=== PATIENT | male | born 1990 | race Caucasian/White ===

== ENCOUNTER 2019-07-04 20:48 | Emergency (ER) | payer OTHER ==
[~2019-07-04] VITALS: Ht 190.5 cm; Wt 68.2 kg
[~2019-07-04 20:48] MED LIST: LAMISIL250 M1; MULTI VITAMINS1 TAB PO; NO HOME MEDICATIONS; PREDNISONE20 MG PO
[2019-07-04 20:53] VITALS: BP 154/99; TEMP 97.4
[2019-07-04] MEDS ORDERED: NORCO 325 MG-51 TAB PO (22:29)
[2019-07-04 22:41] VITALS: PULSE 86
== END 2019-07-04 22:41 | disposition home or self-care (01) ==
LOC: COL.ER 20:48
DX: S43.005A Unspecified dislocation of left shoulder joint, initial encounter (principal); W01.0XXA Fall on same level from slipping, tripping and stumbling without subsequent striking against object, initial encounter; Y93.64 Activity, baseball; Y92.830 Public park as the place of occurrence of the external cause
CPT/HCPCS: J2060; J2405; J3010

== ENCOUNTER 2024-07-27 12:48 | Outpatient (CLI) | payer OTHER ==
[~2024-07-27] VITALS: Ht 190.5 cm; Wt 68.0 kg
[~2024-07-27 12:48] MED LIST changes: +NORCO 325 MG-51 TAB PO
[2024-07-27] MEDS ORDERED: NS 1,000 ML IV SCH (13:00)
[2024-07-27 13:13] VITALS: BP 138/83; PULSE 63; TEMP 98.3
[2024-07-27] MEDS ORDERED: PRINIVIL20 MG PO (13:22)
--- NOTE | 2024-07-27 15:25 | NUR ---
PT TOLERATED INFUSION WELL. VS REMAINED WITHIN NORMAL LIMITS. PT FREE FROM ACUTE CONCERNS AND COMPLAINTS UPON DISCHARGE. PT TOLERATED PO FOOD AND FLUIDS DURING INFUSION AND AMBULATED INDEPENDENTLY TO MAIN LOBBY UPON DISCHARGE.
== END 2024-07-27 15:26 | disposition home or self-care (01) ==
LOC: EUO 12:48
DX: R11.10 Vomiting, unspecified (principal)
CPT/HCPCS: J7030